=== PATIENT | female | born 1985 | race Caucasian/White ===

== ENCOUNTER → 2017-02-26 | Outpatient (CLI) | payer OTHER ==
[~2017-02-26] MED LIST: IBUPROFEN800 MG PO; MOTRIN600 M1 PO; NO MEDICATIONS; PERCOCET PO
--- NOTE | ~2017-02-26 | CR63 ---
[facility]. [facility] A Service of [facility] RADIOLOGY TEXT RESULTS PATIENT: ZACARIAS BARON LOCATION: [place] : [birth year] UNIT #: [id number] AGE: [address]: Alexandre Shukla MD SEX: F ORDER DR: [id number] [place] [id number] O MR#: [id number] Acc #: [id number] NAME: ZACARIAS BARON : 1985 SEX: F STUDY DATE/TIME: 02/26/2017 9:25 UNIT: [facility] ROOM: STUDY DESCRIPTION: CR Chest 2 View Attending Physician: Alexandre Shukla M.D. Referring Physician: Alexandre Shukla M.D. Ordering Physician: Alexandre Shukla M.D. Primary Care Physician: Primary Care Physician No MEDICAL IMAGING REPORT This report is preliminary unless electronic signature is present. EXAM Chest PA and lateral, 02/26/2017 HISTORY Cough and chest congestion for 3 weeks. Retinal vasculitis. FINDINGS PA and lateral examination of the chest upright shows a good expansion of the parenchyma with a normal distribution of the pulmonary vascularity. There is no indication of congestion, effusion, infiltrate, tumor, or nodular density. The pleural reflections and diaphragmatic contours are normal. The cardiac silhouette and mediastinal anatomy is within normal limits. IMPRESSION Normal chest. Dictated by... Caden Barnes M.D. THIS IS AN ELECTRONICALLY VERIFIED REPORT Caden Barnes M.D. at 02/27/2017 7:46 AM [place]je[place] TD: 02/26/2017 11:39 JOB #: [id number] MEDICAL IMAGING REPORT Page 1 of 1
[2017-03-03 22:59] LABS: ANA SCREEN Negative (Negative)
[2017-03-12 09:09] LABS: NIL 0.03
[2017-03-12 09:10] LABS: QUANTIFERON Negative; TB AG-NIL <0.00
== END | disposition home or self-care (01) ==
LOC: SLAB 09:04
PROVIDERS: Ophthalmology
DX: H35.063 Retinal vasculitis, bilateral (principal)
CPT/HCPCS: 36415; 71020; 82164; 86038; 86039; 86140; 86480; 86780